=== PATIENT | female | born 1950 | race Two or more races ===

== ENCOUNTER 2022-08-09 18:48 | Inpatient (IN) | payer OTHER ==
[~2022-08-09] VITALS: Ht 165.1 cm; Wt 68.0 kg
[2022-08-09] MEDS ORDERED: SYNTHROID (19:21)
[2022-08-11] MEDS ORDERED: VITAMIN D21250 MCG (11:38)
[2022-08-11] MEDS ORDERED: ZANAFLEX2 MG (11:38)
[2022-08-11] MEDS ORDERED: SIMVASTATIN20 MG (11:38)
[2022-08-11] MEDS ORDERED: SYNTHROID75 MCG (11:38)
[2022-08-11] MEDS ORDERED: IBANDRONATE SO150 MG (11:38)
[2022-08-11] MEDS ORDERED: DICLOFENAC POTA50 MG (11:38)
== END 2022-08-18 15:02 | DRG 65 ==
LOC: ER 18:48 → MEDJ 21:07
PROVIDERS: ADMIT Internal Medicine; ATTEND Internal Medicine
PROC: BW28ZZZ Computerized Tomography (CT Scan) of Head (ICD-10-PCS; 2022-08-09)
PROC: B345ZZZ Ultrasonography of Bilateral Common Carotid Arteries (ICD-10-PCS; 2022-08-09)
PROC: BW38ZZZ Magnetic Resonance Imaging (MRI) of Head (ICD-10-PCS; 2022-08-09)
PROC: B24BZZZ Ultrasonography of Heart with Aorta (ICD-10-PCS; 2022-08-10)
PROC: BW28YZZ Computerized Tomography (CT Scan) of Head using Other Contrast (ICD-10-PCS; 2022-08-13)
PROC: 4A12X4Z Monitoring of Cardiac Electrical Activity, External Approach (ICD-10-PCS; principal; 2022-08-14)
DX: I63.532 Cerebral infarction due to unspecified occlusion or stenosis of left posterior cerebral artery (principal); N39.0 Urinary tract infection, site not specified; R47.01 Aphasia; F80.2 Mixed receptive-expressive language disorder; E03.9 Hypothyroidism, unspecified; E78.5 Hyperlipidemia, unspecified
CPT/HCPCS: 70544